=== PATIENT | female | born 1980 | race Caucasian/White ===

== ENCOUNTER 2022-09-01 20:30 | Emergency (ER) | payer MEDICAID, SELFPAY ==
--- NOTE | ~2022-09-01 | XR_ITS ---
EXAMINATION: XR CHEST CLINICAL INFORMATION: Shortness of breath. COMPARISON: None available. TECHNIQUE: Frontal view of the chest was obtained. FINDINGS: Normal appearance of the cardiomediastinal silhouette. No focal airspace opacity, pleural effusion or pneumothorax. No displaced osseous fractures. XR/XR chest 1V IMPRESSION: 1. No acute cardiopulmonary findings. 2. No displaced osseous fractures.
[2022-09-01 20:40] VITALS: BP 133/93; PULSE 115; RESP 24; O2SAT 100; BMI 43.4
--- NOTE | 2022-09-01 20:43 | ECG_ITS ---
Test Reason : CX PAIN Blood Pressure : / mmHG Vent. Rate : 117 BPM Atrial Rate : 117 BPM P-R Int : 140 ms QRS Dur : 074 ms QT Int : 344 ms P-R-T Axes : 042 050 022 degrees QTc Int : 479 ms Sinus tachycardia Otherwise normal ECG No previous ECGs available Referred By: Charles Faith Electronically Signed By:JONATHAN CALIX
--- NOTE | 2022-09-01 20:43 | ED_ITS ---
HPI - General Adult General Chief complaint: Dyspnea Stated complaint: sob asthma Time Seen by Provider: 09/01/22 20:35 Source: patient and family Mode of arrival: ambulatory Limitations: no limitations History of Present Illness HPI narrative: This is a 41-year-old female history of asthma, hypertension, fibromyalgia presenting to the emergency department shortness of breath times a few hours, patient tells me this feels like her typical asthma attack however she did not have an inhaler at home to use, she panicked called 911. [address] here in the ambulance they gave her nebulizing treatment, patient tells me it has helped a lot. She tells me that she feels like she is wheezing and she is having subste rnal nonradiating chest pressure. Patient tells me she feels like she is getting sick. Denies sick contacts. Denies fevers, chills, headache, vision changes, dizziness, weakness, nausea, vomiting, abdominal pain. Related Data Previous Rx's Medication Instructions Recorded albuterol sulfate 90 mcg/actuation 2 inh inhalation Q4-6H PRN 09/01/22 breath activated powder inhaler shortness of breath or wheezing #1 ea prednisone 20 mg tablet 40 mg PO DAILY 5 days #10 tabs 09/01/22 Allergies Allergy/AdvReac Type Severity Reaction Status Date / Time Unable to Assess Allergy Unverified 09/01/22 20:36 Review of Systems Review of Systems: Constitutional : No Weight loss, No Fever, No Chills, No Fatigue, No Malaise ENT/Mouth : No sore throat, No Rhinorrhea Eyes: No Eye Pain, No Swelling, No Redness Cardiovascular : + Chest Pain, + SOB, No Dyspnea on Exertion, No Orthopnea, No Edema, No Palpitations Respiratory : No Cough, No Sputum, No Wheezing Gastrointestinal : No Nausea, No Vomiting, No Diarrhea, No Constipation, No abdominal Pain, No Hematochezia, No Melena Genitourinary : No Dysuria, No Urinary Frequency, No Hematuria, Musculoskeletal : No joint pain, No Myalgias, No Joint Swelling Skin : No Skin Lesions, No rash Neuro : No Weakness, No Numbness, No Dizziness, No Headache Psych : No Anxiety/Panic, No Depression All other systems reviewed and are negative Yes all other systems are reviewed and are negative PMFSH Past Medical History Attestation statement: The following information was validated with the patient. Source: old records reviewed and nursing notes reviewed Social History Social History Advance Directives: No Advance Directives Information Provided: No Physical Exam ED Vital Signs: Vital Signs - 24 hr 09/01/22 20:40 09/01/22 21:06 09/01/22 21:29 Temperature 98.3 F Pulse Rate 115 H 96 114 H Respiratory Rate 24 H 18 20 Blood Pressure 133/93 H 118/80 Pulse Oximetry 100 97 Oxygen Delivery Method Room Air BMI result Body Mass Index 43.4 Vital signs stable Appearance: Alert.? Oriented X3.? Mild acute distress.? Head: Normocephalic, atraumatic, no step-offs or deformities Eyes: Pupils equal, round and reactive to light.? ENT: Pharynx normal.? Neck: Normal inspection.? Neck supple.? CVS: Normal heart rate and rhythm.? Pulses normal.? Respiratory: Mild respiratory distress.? Breath sounds with faint expiratory wheezing bilaterally.. No use of accessory muscles for breathing. Abdomen: Soft and nontender.? Skin: Skin warm and dry.? Normal skin color.? Normal skin turgor.? Extremities: No lower extremity edema.? No calf ttp. 5/5 strength to bilateral upper and lower extremities Back: No midline tenderness, no C-spine tenderness, full range of motion, no CVA tenderness bilaterally Neuro: Oriented X 3.? No motor deficit.? No sensory deficit. CN 2-12 intact Course Reevaluation(s) Reevaluation #1: CBC with slight normocytic anemia, this is likely patient's baseline. I do not suspect acute blood loss. No reports of bleeding. Chemistry with slightly elevated BUN likely secondary to poor p.o. intake/dehydration. Patient's transaminases slightly elevated however not much, no abdominal tenderness, unlikely intra-abdominal etiology. Patient's troponin negative, her EKG is nonischemic and showing a sinus tachycardia tachycardia likely secondary to frequent albuterol inhalers/treatments. COVID and influenza are negative today. D-dimer negative unlikely PE. Patient's chest x-ray no acute cardiopulmonary findings, no displaced osseous fractures. This is likely acute asthma exacerbation. Patient feeling better at this time. Time: 21:39 Reevaluation #2: Patient tells me she is feeling much better and would like to go home, on re- evaluation there is no wheezing appreciated breath sounds clear. Patient comfortable appearing saturating 95-96% on room air, tachycardic likely secondary to nebulizing treatments.. I did give her hand written scripts for her prescriptions. At this time patient to be discharge. Educated patient on diagnosis and treatment plan, answered all question, patient verbalizes understanding. At this time patient will be discharged home, advised to return with new or worsening symptoms. Educated on worrisome signs and symptoms and when to return. At this time I feel comfortable discharge home. Time: 21:42 Medications Administered Discontinued Medications Generic Name Dose Route Start Last Admin Trade Name Ceasar PRN Reason Stop Dose Admin Albuterol Sulfate 10 mg 09/01/22 20:40 09/01/22 20:49 Albuterol Sulfate (0.083%) 2.5 Mg/3 Ml Vial.Neb INHALE 09/01/22 20:41 10 mg ONCE ONE Administration Medical Decision Making Medical Decision Making [facility] Narrative: 2044 41-year-old female presents with what she thinks is an asthma attack started just prior to arrival. Received a DuoNeb by EMS and reports symptomatic improvement. On exam Mild respiratory distress.? Breath sounds with faint expiratory wheezing bilaterally.. No use of accessory muscles for breathing. Concerns for acute asthma exacerbation versus viral illness. Unlikely PE, pneumonia. Unlikely that this is ACS. Plan at this time basic labs, albuterol treatment, x-ray, viral testing, will do D-dimer and troponin. Differential Diagnosis Differential Diagnoses: The differential diagnosis associated with the presentation includes Concerns for acute asthma exacerbation versus viral illness. Unlikely PE, pneumonia. Unlikely that this is ACS. Admission/Observation Consideration of admission/observation: Escalation of care including admission/observation considered Lab Data [facility] Lab Attestation statement: I reviewed the patient's lab results. 09/01/22 20:53 09/01/22 20:53 Labs: Lab Results 09/01/22 09/01/22 09/01/22 Range/Units 20:53 20:53 20:53 WBC 9.7 (4.8-10.8) X10*3/uL RBC 4.01 L (4.20-5.50) X10*6/uL Hgb 10.4 L (12.0-16.0) g/dl Hct 33.8 L (37.0-47.0) % MCV 84.3 (80.0-98.0) fL MCH 25.9 L (27.0-33.0) pg MCHC 30.8 L (31.0-35.0) g/dl RDW 17.7 H (11.0-16.0) % Plt Count 254 (160-400) X10*3/uL MPV 9.2 L (9.4-12.3) fL Immature Gran % (Auto) 0.3 (0.0-0.4) % Neut % (Auto) 67.7 (45-73) % Lymph % (Auto) 23.1 (20-40) % [place] % (Auto) 5.8 (2-11) % Eos % (Auto) 2.8 (0-4) % Baso % (Auto) 0.3 (0-2) % Lymph # (Auto) 2.2 (1.2-4.9) X10*3/uL [place] # (Auto) 0.6 (0.1-1.2) X10*3/uL Eos # (Auto) 0.3 (0.0-0.4) X10*3/uL Baso # (Auto) 0.0 (0.0-0.2) X10*3/uL Abs Immat Gran (auto) 0.03 (0.00-0.03) X10*3/uL Absolute Neuts (auto) 6.6 (2.0-8.3) x10*3/uL Absolute Nucleated RBC 0.000 (0.0-0.012) X10*3/uL Nucleated RBC % (auto) 0.0 (0.0-0.2) /100WBC D-Dimer High Sensitivty NG/ML Sodium 142 (135-145) mmol/L Potassium 4.0 (3.3-5.1) mmol/L Chloride 111 H (96-108) mmol/L Carbon Dioxide 23 (22-29) mmol/L Anion Gap 12 (12-20) BUN 19 H (9-16) mg/dL Creatinine 0.86 (0.5-1.4) mg/dL Estim Creat Clear Calc 105.3 Estimated GFR > 60 Random Glucose 145 H (60-115) mg/dL Calcium 8.2 L (8.4-10.2) mg/dL Magnesium 1.9 (1.6-2.6) mg/dL Total Bilirubin 0.3 (0.0-1.0) mg/dL AST 39 H (5-31) U/L ALT 56 H (0-31) U/L Alkaline Phosphatase 145 H (39-117) U/L Troponin I High Sens (<3.5-17.0) ng/L Total Protein 6.4 L (6.5-8.0) g/dL Albumin 3.5 (3.5-5.0) g/dL COVID-19 (YOAV) (Negative) COVID-19 Clin Com Influenza Type A (DAY) Negative (Negative) Influenza Type B (DAY) Negative (Negative) Influenza A & B Note See Note 09/01/22 09/01/22 09/01/22 Range/Units 20:53 20:53 20:53 WBC (4.8-10.8) X10*3/uL RBC (4.20-5.50) X10*6/uL Hgb (12.0-16.0) g/dl Hct (37.0-47.0) % MCV (80.0-98.0) fL MCH (27.0-33.0) pg MCHC (31.0-35.0) g/dl RDW (11.0-16.0) % Plt Count (160-400) X10*3/uL MPV (9.4-12.3) fL Immature Gran % (Auto) (0.0-0.4) % Neut % (Auto) (45-73) % Lymph % (Auto) (20-40) % [place] % (Auto) (2-11) % Eos % (Auto) (0-4) % Baso % (Auto) (0-2) % Lymph # (Auto) (1.2-4.9) X10*3/uL [place] # (Auto) (0.1-1.2) X10*3/uL Eos # (Auto) (0.0-0.4) X10*3/uL Baso # (Auto) (0.0-0.2) X10*3/uL Abs Immat Gran (auto) (0.00-0.03) X10*3/uL Absolute Neuts (auto) (2.0-8.3) x10*3/uL Absolute Nucleated RBC (0.0-0.012) X10*3/uL Nucleated RBC % (auto) (0.0-0.2) /100WBC D-Dimer High Sensitivty < 150 NG/ML Sodium (135-145) mmol/L Potassium (3.3-5.1) mmol/L Chloride (96-108) mmol/L Carbon Dioxide (22-29) mmol/L Anion Gap (12-20) BUN (9-16) mg/dL Creatinine (0.5-1.4) mg/dL Estim Creat Clear Calc Estimated GFR Random Glucose (60-115) mg/dL Calcium (8.4-10.2) mg/dL Magnesium (1.6-2.6) mg/dL Total Bilirubin (0.0-1.0) mg/dL AST (5-31) U/L ALT (0-31) U/L Alkaline Phosphatase (39-117) U/L Troponin I High Sens < 2.7 (<3.5-17.0) ng/L Total Protein (6.5-8.0) g/dL Albumin (3.5-5.0) g/dL COVID-19 (YOAV) Negative (Negative) COVID-19 Clin Com See Note Influenza Type A (DAY) (Negative) Influenza Type B (DAY) (Negative) Influenza A & B Note Independent Interpretation I performed an independent interpretation of an: Plain X-Ray Radiology Impression Discussion of test interpretation with radiology: I have reviewed the radiologist's reading. Core Measures AMI core measures followed: Yes Measure exclusions: not indicated Critical Care Time Critical Care Time Critical Care Time: No Discharge Plan Discharge Clinical Impression: Asthma Patient Disposition: Home, Self-Care Instructions: Asthma (ED) Additional Instructions: Take your medications as prescribed. If you were prescribed antibiotics today, it is important that you take your medication to their entirety, do not skip any doses, do not finish them early. Follow-up with your primary care provider this week. Return to the emergency department with new or worsening symptoms. Such as fevers, chills, chest pain, shortness of breath, nausea, vomiting, dizziness, headache, vision changes, lethargy In case of emergency call 911 [place] katie medicamentos seg?n lo prescrito. Si le recetaron antibi?dedrick zee, es importante que tome travis medicamento en travis totalidad, no se salte ninguna dosis, no los termine antes de tiempo. Seguimiento con travis proveedor de atenci?n primaria esta semana. Regrese al departamento de emergencias con s?ntomas nuevos o que empeoran. Waldo fiebre, escalofr?os, dolor de pecho, dificultad para respirar, n?useas, v?mitos, mareos, dolor de linus, cambios en la visi?n, letargo En almaz de emergencia llama al 911 Prescriptions: New prednisone 20 mg tablet 40 mg PO DAILY 5 Days Qty: 10 0RF albuterol sulfate 90 mcg/actuation aerosol powdr breath activated 2 inh inhalation Q4-6H PRN (Reason: shortness of breath or wheezing) Qty: 1 0RF Referrals: ED Physician,Generic [Physician] - 2 days Stand Alone Forms: Work/School Release Interventions: ED Discharge Assessment Last Done: 09/01/22 22:13 Discharge Date/Time: 09/01/22 22:14
[2022-09-01] MEDS: Albuterol Sulfate (0.083%) 2.5 MG/3 ML VIAL.NEB 10 MG INHALE (20:49)
[2022-09-01 21:00] LABS: MANUAL DIFF FLAG NO
[2022-09-01 21:02] LABS: Basophils Percent Auto 0.3 % (0-2); Eosinophils Absolute Auto 0.3 X10*3/uL (0.0-0.4); Eosinophils Percent Auto 2.8 % (0-4); Hematocrit 33.8 % (37.0-47.0); Hemoglobin 10.4 g/dl (12.0-16.0); Imm Gran Abs Auto 0.03 X10*3/uL (0.00-0.03); Imm Gran Pct Auto 0.3 % (0.0-0.4); Lymphocytes Absolute Auto 2.2 X10*3/uL (1.2-4.9); Lymphocytes Percent Auto 23.1 % (20-40); Mean Corpuscular HGB Conc 30.8 g/dl (31.0-35.0); Mean Corpuscular Hemoglobin 25.9 pg (27.0-33.0); Mean Corpuscular Volume 84.3 fL (80.0-98.0); Mean Platelet Volume 9.2 fL (9.4-12.3); Monocytes Absolute Auto 0.6 X10*3/uL (0.1-1.2); Monocytes Percent Auto 5.8 % (2-11); Neutrophils Absolute Auto 6.6 x10*3/uL (2.0-8.3); Neutrophils Percent Auto 67.7 % (45-73); Platelet Count 254 X10*3/uL (160-400); Red Blood Count 4.01 X10*6/uL (4.20-5.50); Red Cell Distribution Width 17.7 % (11.0-16.0); White Blood Count 9.7 X10*3/uL (4.8-10.8)
[2022-09-01 21:06] VITALS: PULSE 96; RESP 18
[2022-09-01 21:14] LABS: Alanine Aminotransferase 56 U/L (0-31); Albumin Level 3.5 g/dL (3.5-5.0); Alkaline Phosphatase 145 U/L (39-117); Anion Gap 12 (12-20); Aspartate Amino Transferase 39 U/L (5-31); Bilirubin Total 0.3 mg/dL (0.0-1.0); Blood Urea Nitrogen 19 mg/dL (9-16); Calcium 8.2 mg/dL (8.4-10.2); Carbon Dioxide 23 mmol/L (22-29); Chloride 111 mmol/L (96-108); Creatinine Clr Calc Pharmacy 105.3; Estimated Glomerular Filt Rate > 60; Glucose Random 145 mg/dL (60-115); Magnesium 1.9 mg/dL (1.6-2.6); Sodium 142 mmol/L (135-145); Total Protein 6.4 g/dL (6.5-8.0)
[2022-09-01 21:16] LABS: IDNOW Serial# BCCEAD1C; Influenza A Negative (Negative); Influenza B2 Negative (Negative)
[2022-09-01 21:17] LABS: COVID-19 Test Negative (Negative); IDNOW Serial# 08D9AD1C
[2022-09-01 21:25] LABS: Troponin-I High Sensitivity < 2.7 ng/L (<3.5-17.0)
[2022-09-01 21:29] VITALS: BP 118/80; PULSE 114; RESP 20; TEMP 36.8; O2SAT 97
[2022-09-01 21:29] LABS: D Dimer High Sensitivity < 150 NG/ML
== END 2022-09-01 22:14 | disposition home or self-care (01) ==
PROVIDERS: Physician Assistant; Emergency Provider Emergency Medicine
DX: J45.909 Unspecified asthma, uncomplicated (principal); R06.02 Shortness of breath; Z20.822 Contact with and (suspected) exposure to COVID-19
CPT/HCPCS: 36415; 71045; 80053; 83735; 84484; 85025; 85379; 87502; 87635; 93005; 94640; 99284

== ENCOUNTER 2022-09-20 09:06 | Emergency (ER) | payer MEDICAID, SELFPAY ==
--- NOTE | ~2022-09-20 | CT_ITS ---
EXAMINATION: CT HEAD WITHOUT CONTRAST CLINICAL INFORMATION: Trauma COMPARISON: None available. TECHNIQUE: Contiguous axial imaging was performed from the skull base to vertex without intravenous administration of contrast. This CT examination was performed using dose optimization techniques as appropriate, variously including the following: *Automated exposure control *Adjustment of mA and/or kV according to patient size (this includes techniques or standardized protocols for targeted exams where dose is matched to indication/reason for exam; i.e. extremities or head) *Use of iterative reconstruction technique DLP: 631 mGy-cm FINDINGS: There is no evidence of an extra-axial collection. There is no evidence of intra or extra-axial hemorrhage. The ventricles and extra-axial CSF spaces are appropriate. Evangelista-white matter differentiation is normal. No mass, mass effect or infarct. No skull fracture. Paranasal sinuses mastoid air cells and middle ears are clear. CT/CT head/brain wo IV con IMPRESSION: Unremarkable exam.
--- NOTE | ~2022-09-20 | XR_ITS ---
EXAMINATION: XR THORACIC SPINE CLINICAL INFORMATION: Pain COMPARISON: None available. TECHNIQUE: 3 views of the thoracic spine were obtained. FINDINGS: There is curvature of the lower thoracic spine to the left. Bone alignment is otherwise normal. No fracture or dislocation. Degenerative changes of the lower thoracic spine. Paraspinal soft tissues are normal. XR/XR thoracic spine 3V IMPRESSION: No fracture or dislocation. Mild scoliosis and degenerative changes of the lower thoracic spine.
[2022-09-20 09:08] VITALS: BP 118/60; PULSE 113; RESP 20; TEMP 36; O2SAT 96; BMI 37.5
--- NOTE | 2022-09-20 09:26 | ED_ITS ---
HPI - General Adult General Chief complaint: Head Injury Stated complaint: Head inj sent by [facility] Time Seen by Provider: 09/20/22 09:21 Source: patient Limitations: no limitations and language barrier History of Present Illness HPI narrative: 41-year-old female presents to the ER complaining of head trauma status post falling in the tub on Monday. Patient was advised to come to the ER by the PCP. Patient states he slipped and hit the back of her head and passed out. Patient had some nausea at that time which is resolved and associated dizziness. Patient continues with a headache at this time. Symptoms mild to moderate. Patient also complaining of mid to upper back pain. Pain increases with palpation. Patient takes she has a history of hypertension and anxiety disorder. Related Data Previous Rx's Medication Instructions Recorded albuterol sulfate 90 mcg/actuation 2 inh inhalation Q4-6H PRN 09/01/22 breath activated powder inhaler shortness of breath or wheezing #1 ea prednisone 20 mg tablet 40 mg PO DAILY 5 days #10 tabs 09/01/22 ibuprofen 600 mg tablet 600 mg PO TID PRN pain #30 tabs 09/20/22 methocarbamol 750 mg tablet 750 mg PO TID PRN pain (scale 09/20/22 score 4-6) #20 tabs Allergies Allergy/AdvReac Type Severity Reaction Status Date / Time Unable to Assess Allergy Unverified 09/01/22 20:36 Review of Systems Review of Systems: General: No fever, no chills Ophthalmology: No vision changes, no discharge ENT: No sore throat, no ear pain Neck: No neck pain Cardiovascular, no chest pain, no peripheral edema no shortness of breath Respiratory: No dyspnea, no sputum production, no cough Muscle skeletal: No malaise, no back pain, no neck pain, no extremity pain GI: No abdominal pain positive nausea after falling which is resolved Psychiatric: No depression, no suicidal ideation, no homicidal ideation Skin: No rash Immunology: No immunocompromised Hematology: No bleeding, no bruising PMFSH Past Medical History Attestation statement: The following information was validated with the patient. Social History Social History Alcohol intake: never Smoked in Last 30 Days: No Use of substances other than those prescribed or required for medical reasons: No Advance Directives: No Advance Directives Information Provided: Yes Physical Exam ED Vital Signs: Vital Signs - 24 hr 09/20/22 09:08 Temperature 96.8 F Pulse Rate 113 H Respiratory Rate 20 Blood Pressure 118/60 Pulse Oximetry 96 Oxygen Delivery Method Room Air BMI result Body Mass Index 37.5 General appearance: Awake, alert, cooperative, in no acute distress Skin: Warm, dry, no rash Eyes: PERRL, EOMI, no icterus ENT: Oropharynx normal Neck: Soft supple full range of motion, no midline tenderness Pulmonary: Breath sounds clear to auscultation bilaterally, no accessory muscle use Cardiovascular: Regular rate and rhythm no murmurs and rubs Abdomen: Soft nontender no rebound or guarding positive bowel sounds Extremities: Midback some slight midline tenderness and paraspinal muscle tenderness. Neuro: Alert oriented x3, no focal deficit, no pronator drift, can filling and closing machine tender is equal bilaterally, [id number] touch is intact. Psych: Normal affect Course Course Course Narrative: Close head injury Subarachnoid hemorrhage Thoracic compression fracture Thoracic contusion Concussion Epidural bleed 41-year-old female status post fall in the tub. CT scan of the head is pending to rule out intracranial injury. Thoracic spine x-ray is also pending. Patient has no focal findings on neurological exam low suspicion for intracranial hemorrhage at this time. Patient examined interviewed with head of science present 11:04 CT scan is negative, thoracic spine x-rays negative symptoms likely secondary to head contusion/concussion. Thoracic contusion Medical Decision Making Radiology Impression Discussion of test interpretation with radiology: I have reviewed the radiologist's reading. Radiologist Impression: [place] [id number] XRay Report Signed Patient: Lida Shell MR#: [id number] : 1980 Acct:[id number] Age/Sex: 41 / F ADM Date: 09/20/22 Loc: HO.ED Attending Dr: Ordering Physician: Paul Cali Date of Service: 09/20/22 Procedure(s): XR thoracic spine 3V Accession Number(s): [id number] cc: Paul Cali ~ EXAMINATION: XR THORACIC SPINE CLINICAL INFORMATION: Pain COMPARISON: None available. TECHNIQUE: 3 views of the thoracic spine were obtained. FINDINGS: There is curvature of the lower thoracic spine to the left. Bone alignment is otherwise normal. No fracture or dislocation. Degenerative changes of the lower thoracic spine. Paraspinal soft tissues are normal. XR/XR thoracic spine 3V IMPRESSION: No fracture or dislocation. Mild scoliosis and degenerative changes of the lower thoracic spine. ? Dictated By: Allison Estevez MD Signed By: <Electronically signed by Allison Estevez MD in OV> 09/20/22 1101 DD/ 1003 TD/TT:? Sectionizer: ERIK ? Paul Cali [facility] My List KALYAN ?6? To Be Seen ?10? ED ?19? EDBH ?5? EMC/RP/Pivot ?5? Alexander,Carolin H? ? [facility] [place] [facility] - [facility]? Extremity Injury, Upper? 73 F? With Doctor? 4? ?? 1h 53m? ?? REG ER? Draft? Savings Counselor Needed? ?? Needs rings cut off Jose Chilel Michael Fall 09/19/ R hand inj/R knee pain? Order BP 152/77 Pulse 83 Resp 17 Temp 96.3 F O2 Sat 97% (RA) X-Ray oYdit Darby? ? [facility] - E[facility]? Extremity Problem? 39 F? With Doctor? 4? ?? 1h 37m? ?? REG ER? Draft? Savings Counselor Needed? ?? Jose Chilel Michael R arm pain? Order BP 113/71 Pulse 68 Resp 17 Temp 97.5 F O2 Sat 100% (RA) X-Ray Janett Dixon L? ? [facility] Bed 3 - EMC03? General Medical? 57 F? With Doctor? 3? ?? 1h 35m? ?? REG ER? Draft? Jose Chilel Michael Headaches/Arm weakness? Order BP 155/95 Pulse 59 Resp 20 Temp 97.8 F O2 Sat 99% (RA) Hematology CT ECG 12 syd... Mar Nursing Chemistry Lida Shell? ? [facility] Bed 4 - EMC4? Head Injury? 41 F? With Doctor? 3? ?? 1h 56m? ?? REG ER? Draft? Savings Counselor needed Jose Chilel Michael Head inj sent by [facility]? Order BP 118/60 Pulse 113 Resp 20 Temp 96.8 F O2 Sat 96% (RA) CT X-Ray Hung Wang? ? [facility] Bed 5 - EMC5? General Medical? 48 M? With Doctor? 4? ?? 45m? ?? PRE ER? Draft? Jose Chilel Michael Chest pressure/Allergies? Order BP 143/89 Pulse 106 Resp 16 Temp 97.8 F O2 Sat 96% (RA) ECG 12 syd... Nursing X-Ray Serology CT - CT head/brain wo IV con Lida Shell??41??F??1980 ? Allergy/Adv: Unable to Assess (More??) Close Imaging ACTIVITY DATE EXAM STATUS AUTHOR 09/20/22 10:[address] Signed Allison Estevez Imaging Reports Close Head CT (Signed) HerbAllison - 09/20/22 Launch?Image [place] [address] CT Scan Report Signed Patient: Lida Shell MR#: [id number] : 1980 Acct:[id number] Age/Sex: 41 / F ADM Date: 09/20/22 Loc: HO.ED Attending Dr: Ordering Physician: Paul Cali Date of Service: 09/20/22 Procedure(s): CT head/brain wo IV con Accession Number(s): [id number] cc: Paul Cali ~ EXAMINATION: CT HEAD WITHOUT CONTRAST CLINICAL INFORMATION: Trauma? COMPARISON: None available. TECHNIQUE: Contiguous axial imaging was performed from the skull base to vertex without intravenous administration of contrast. This CT examination was performed using dose optimization techniques as appropriate, variously including the following: *Automated exposure control *Adjustment of mA and/or kV according to patient size (this includes techniques or standardized protocols for targeted exams where dose is matched to indication/reason for exam; i.e. extremities or head) *Use of iterative reconstruction technique DLP: 631 mGy-cm FINDINGS: There is no evidence of an extra-axial collection. There is no evidence of intra or extra-axial hemorrhage. The ventricles and extra-axial CSF spaces are appropriate. Evangelista-white matter differentiation is normal. No mass, mass effect or infarct. No skull fracture. Paranasal sinuses mastoid air cells and middle ears are clear. ? CT/CT head/brain wo IV con IMPRESSION: Unremarkable exam. Dictated By: Allison Estevez MD Signed By: <Electronically signed by Allison Estevez MD in OV> 09/20/22 1100 DD/ 1002 TD/TT:? Sectionizer: [facility] Discharge Plan Discharge Clinical Impression: Closed head injury, Concussion without loss of consciousness, Contusion of thoracic spine Patient Disposition: Home, Self-Care Instructions: Concussion (ED), Head Injury (ED), Contusion in Adults (ED) Additional Instructions: CT scan injury head is normal X-ray of your back is negative for fracture Your symptoms are likely secondary to hitting her head and back Medication as directed follow-up with PCP Prescriptions: New methocarbamol 750 mg tablet 750 mg PO TID PRN (Reason: pain (scale score 4-6)) Qty: 20 0RF ibuprofen 600 mg tablet 600 mg PO TID PRN (Reason: pain) Qty: 30 0RF No Action prednisone 20 mg tablet 40 mg PO DAILY 5 Days Qty: 10 0RF albuterol sulfate 90 mcg/actuation aerosol powdr breath activated 2 inh inhalation Q4-6H PRN (Reason: shortness of breath or wheezing) Qty: 1 0RF Stand Alone Forms: Work/School Release Print Language: [place] Citizen
--- NOTE | 2022-09-20 09:32 | PC.NURSE ---
Patient states that she slipped and fell in the shower on Monday, states that she did loose consciousness at the time, and had to lay in the shower until the pain subsided. Patient states that she went to her provider yesterday and was sent here. Patient has a little headache but no nausea or vomiting at this time. Patient has some pain in her mid-back.
[2022-09-20 11:16] VITALS: BP 102/67; PULSE 98; RESP 18; O2SAT 99
== END 2022-09-20 11:16 | disposition home or self-care (01) ==
PROVIDERS: Emergency Provider Emergency Medicine; PCP Emergency Medicine
DX: S09.90XA Unspecified injury of head, initial encounter (principal); W18.2XXA Fall in (into) shower or empty bathtub, initial encounter; Y93.E1 Activity, personal bathing and showering; Y92.012 Bathroom of single-family (private) house as the place of occurrence of the external cause; Y99.9 Unspecified external cause status
CPT/HCPCS: 70450; 72072; 99284